=== PATIENT | female | born 1960 | race Caucasian/White ===

== ENCOUNTER 2020-04-28 07:28 | Day surgery (SDC) | payer OTHER ==
[~2020-04-28 07:28] MED LIST: LOSARTAN-HCTZ1 EACH PO; OMEPRAZOLE20 MG PO; SINGULAIR10 MG PO; ZYRTEC10 M3 PO
== END 2020-04-28 14:25 | disposition home or self-care (01) ==
LOC: AMB-ENDOS 07:28
PROVIDERS: ATTEND Colon & Rectal Surgery
DX: K62.89 Other specified diseases of anus and rectum (principal); K64.2 Third degree hemorrhoids; Z20.828 Contact with and (suspected) exposure to other viral communicable diseases

== ENCOUNTER 2020-05-30 13:54 | Outpatient (CLI) | payer OTHER | END 2020-06-03 13:34 | disposition home or self-care (01) | LOC: RX STUDY 13:54 | PROVIDERS: ATTEND Colon & Rectal Surgery | DX: K59.09 Other constipation (principal) | CPT/HCPCS: 74018; 78266; A9541 ==

== ENCOUNTER 2021-06-02 11:19 | Outpatient (CLI) | payer OTHER | END 2021-06-04 11:28 | disposition home or self-care (01) | LOC: RX STUDY 11:19 | PROVIDERS: ATTEND Colon & Rectal Surgery | DX: K59.09 Other constipation (principal) ==